=== PATIENT | female | born 1975 | race Caucasian/White ===

== ENCOUNTER → 2019-05-23 | Day surgery (SDC) | payer BC ==
[~2019-05-23] MED LIST: CLONAZEPAM1 MG PO; CYMBALTA20 MG PO; LAMICTAL100 MG PO; LIDOCAINE HCL 1% 2 ML AMP ONE; LIDOCAINE HCL 2% LOCAL INJ 5 ML SDV VIAL INJ ONE; MIDAZOLAM HCL 2 MG/2 ML VIAL ONE; PROPOFOL IV EMULSION 10 MG/ML 20 ML VIAL ONE; REQUIP3 MG PO; SEROQUEL25 MG PO
--- OUTSIDE RECORDS SUMMARY | 2019-05-23 05:23 | XMS REPORT ---
Author Author [facility] Address Unknown Phone Unavailable Care Team Providers Care Supervisor [employer] Name Role Phone Unavailable Unavailable Problems This patient has no known problems. Allergies, Adverse Reactions, Alerts This patient has no known allergies or adverse reactions. Medications This patient has no known medications.
[2019-05-23 07:21] VITALS: BP 96/50
--- NOTE | 2019-05-23 13:09 | Operative Report ---
DATE OF PROCEDURE: 05/23/2019 SURGEON: Khari Laughlin MD PREOPERATIVE DIAGNOSES: Chronic gastroesophageal reflux disease, mild gastric inflammation/esophagitis, history of laparoscopic Pretty-en-Y gastric bypass. POSTOPERATIVE DIAGNOSES: Chronic gastroesophageal reflux disease, mild gastric inflammation/esophagitis, history of laparoscopic Pretty-en-Y gastric bypass. PREOPERATIVE INDICATION: Assess for mucosal disease. PROCEDURES: EGD with gastric pouch biopsy (CPT 67052). ANESTHESIA: Moderate sedation with IV propofol. ASSISTANTS: None. FLUIDS: As per anesthesia. ESTIMATED BLOOD LOSS: Minimal. DRAINS: None. COMPLICATIONS: None. SPECIMENS: Gastric pouch biopsy using cold forceps. GRAFTS: None. FINDINGS: 1. 6 cm gastric pouch without any evidence for anatomic abnormalities. 2. Mild gastric pouchitis. PROCEDURE IN DETAIL: The patient was brought to the endoscopy suite and sedated with IV propofol. A preprocedure pause was performed and also the endoscope was introduced to the oropharynx and guided to the gastric pouch. It was measured to be 6 cm without any undue dilation or other anatomic abnormalities. The anastomosis was traversed and the Pretty limb was entered. No mucosal abnormalities were seen here. There was some mild erythema possibly in the pouch, which was biopsied prior to removing the endoscope. The pouch was desufflated. The endoscope was removed. The patient tolerated the procedure well. Type of wound is type 1, clean. Khari Laughlin MD C/MODL /[id number]
== END | disposition home or self-care (01) ==
LOC: OR 05:15
PROVIDERS: ATTEND Surgery
DX: K21.9 Gastro-esophageal reflux disease without esophagitis (principal); J45.909 Unspecified asthma, uncomplicated; G47.33 Obstructive sleep apnea (adult) (pediatric); Z68.32 Body mass index [BMI] 32.0-32.9, adult; Z98.84 Bariatric surgery status; E66.01 Morbid (severe) obesity due to excess calories; K91.850 Pouchitis
CPT/HCPCS: 43239; 81025; 88305; 88312; J2001 ×2; J2250; J2704